=== PATIENT | male | born 1960 | race Caucasian/White ===

== ENCOUNTER 2016-08-14 16:27 | Emergency (ER) | payer OTHER ==
[2016-08-14] MEDS ORDERED: ASPIRIN 81 MG CHEW TAB ONE (16:42)
== END 2016-08-14 18:33 | disposition home or self-care (01) ==
LOC: ER 16:27
DX: R07.89 Other chest pain (principal); I10 Essential (primary) hypertension; I25.10 Atherosclerotic heart disease of native coronary artery without angina pectoris
CPT/HCPCS: 36415; 71010; 80053; 82550; 83735; 84484; 85025; 85610; 85730; 93005